=== PATIENT | female | born 1960 | race Caucasian/White ===

== ENCOUNTER 2016-11-14 20:51 | Emergency (ER) | payer BC ==
[2016-11-14] MEDS ORDERED: Aspirin 81 MG Tab.Chew PO ONE (21:10)
[2016-11-14 21:13] VITALS: BP 149/97
--- NOTE | 2016-11-14 21:22 | EDM.PDOC ---
ED HISTORY OF PRESENT ILLNESS - General Stated Complaint: NOT FEELING WELL Time Seen by Provider: 11/14/16 21:10 Source of Information: Reports: Patient History Limitations: Reports: No limitations - History of Present Illness INITIAL COMMENTS - FREE TEXT/NARRATIVE: This 56 yo female patient reports to the ED with chest pain and high blood pressure. The patient reports her symptoms started at about 1400 today as a "tightness" in the middle of her chest. The patient reports she took 1/2 of a [place] while at home and laid down, but the pain continued. The patient report after sitting at home for a while, she started to get worried about what was happening. The patient had her blood pressure taken and the pressure at home was 200/166. The patient reports she took a baby aspirin while at home, but was not sure that it got in. The patient reports she has had numerous injections in her back for pain, has a history of a gastric bypass, is a Type 2 diabetic, but no history of acid reflux or cardiac problems. The patient refused the ambulance, but came to the ED in a private vehicle (30 minute trip by car) to be seen. Symptom Onset Date: 11/14/16 Symptom Onset Time: 14:00 Timing/Duration: Reports: Improving, Intermittent Severity: moderate Location, General: Reports: chest Quality: Reports: Pressure (or tightness) Improves with: Reports: None Worsens with: Reports: Other Associated Symptoms (General): Reports: chest pain Treatments [employer]: Reports: Aspirin (possibly had 1 81 mg ASA, but may have vomited the aspirin up. ) - Related Data Allergies/ADRs: Allergies Allergy/AdvReac Type Severity Reaction Status Date / Time codeine Allergy Stomach Verified 11/14/16 21:25 Ache iodine Allergy Hives Verified 11/14/16 21:25 Home Meds: Home Meds Cyclobenzaprine HCl [Cyclobenzaprine HCl] 1 tab PO BEDTIME 10/15/14 [History] Aspirin [Adult Low Dose Aspirin EC] 1 tab PO DAILY 10/18/14 [History] Cholecalciferol (Vitamin D3) [Vitamin D3] 1 tab PO DAILY 10/18/14 [History] Multivit-Min/FA/Lycopene/Lut [Complete Multi 50+] 1 tab PO DAILY 10/18/14 [ History] Calcium Carbonate [Calcium] 500 mg PO DAILY 11/14/16 [History] Hydrocodone/Acetaminophen [Hydrocodon-Acetaminophen 5-325] 1 each PO Q4HR PRN [History] Iron Ps Cmplx/Vit B12/Fa [Poly-Iron 150 Forte] 1 tab PO BID 11/14/16 [History] Social & Family History - Tobacco Use Smoking Status *Q: Former Smoker Years of Tobacco use: 28 Month Tobacco Last Used: 2000 Second Hand Smoke Exposure: No - Alcohol Use Days Per Week of Alcohol Use: 0 - Recreational Drug Use Recreational Drug Use: No ED ROS GENERAL - Review of Systems Review Of Systems: ROS reveals no pertinent complaints other than HPI. ED EXAM, GENERAL - Physical Exam Exam: See Below Exam Limited By: No limitations General Appearance: alert, WD/WN, anxious, moderate distress, obese Eye Exam: bilateral eye: EOMI, normal inspection, PERRL Ears: normal external exam, normal canal, hearing grossly normal, normal TMs Nose: normal inspection, normal mucosa, no blood Throat/Mouth: Normal inspection, Normal lips, Normal teeth, Normal gums, Normal oropharynx, Normal voice, No airway compromise Head: atraumatic, normocephalic Neck: normal inspection, supple, non-tender, full range of motion Respiratory/Chest: no respiratory distress, lungs clear, normal breath sounds, no accessory muscle use, chest non-tender Cardiovascular: normal peripheral pulses, regular rate, rhythm, no edema, no gallop, no JVD, no murmur, no rub GI/Abdominal: normal bowel sounds, soft, non tender, no organomegaly, no distention, no abnormal bruit, no mass (Female) Exam: Deferred Rectal (Female) Exam: Deferred Back Exam: normal inspection, full range of motion, NT Extremities: normal inspection, normal range of motion, non-tender, normal capillary refill, no pedal edema Neurological: alert, oriented, CN II-XII intact, normal cognition, normal gait, normal reflexes, no motor/sensory deficits Psychiatric: normal affect, normal mood Skin Exam: Warm, Dry, Intact, Normal color, No rash Lymphatic: no adenopathy Course - Vital Signs Last Recorded V/S: Last Vital Signs Temp 36.2 C 11/14/16 21:04 Pulse 81 11/14/16 21:04 Resp 18 11/14/16 21:04 BP 149/97 H 11/14/16 21:04 Pulse Ox 97 11/14/16 21:04 - Orders/Labs/Meds Orders: Active Orders 24 hr Category Date Time Status EKG Documentation Completion [RC] URGENT Care 11/14/16 21:04 Active Chest 1V Frontal [CR] Urgent Exams 11/14/16 21:31 Ordered Labs: Laboratory Tests 11/14/16 11/14/16 Range/Units 21:16 21:16 WBC 7.6 (5.0-10.0) 10^3/uL RBC 4.48 (4.2-5.4) 10^6/uL Hgb 14.2 (12.0-16.0) g/dL Hct 42.1 (37.0-47.0) % MCV 94.0 (80-100) fL MCH 31.7 (27.0-34.0) pg MCHC 33.7 (33.0-35.0) g/dL Plt Count 232 (150-450) 10^3/uL Neut % (Auto) 78.2 H (42.2-75.2) % Lymph % (Auto) 17.0 L (20.5-50.1) % [place] % (Auto) 4.4 (2-8) % Eos % (Auto) 0.1 L (1.0-3.0) % Baso % (Auto) 0.3 (0.0-1.0) % Sodium 135 (135-145) mmol/L Potassium 3.9 (3.6-5.0) mmol/L Chloride 98 L (101-111) mmol/L Carbon Dioxide 29.0 (21.0-31.0) mmol/L Anion Gap 11.9 BUN 17 (7-18) mg/dL Creatinine 0.6 (0.6-1.3) mg/dL Est Cr Clr Drug Dosing 106.87 mL/min Estimated GFR (MDRD) > 60 BUN/Creatinine Ratio 28.33 Glucose 154 H (74-105) mg/dL Calcium 9.8 (8.4-10.2) mg/dl Total Bilirubin 0.6 (0.2-1.0) mg/dL AST 30 (10-42) IU/L ALT 28 (10-60) IU/L Alkaline Phosphatase 132 H (42-121) IU/L Troponin I < 0.02 (0.00-0.02) ng/ml Total Protein 7.9 (6.7-8.2) g/dl Albumin 4.6 (3.2-5.5) g/dl Globulin 3.3 Albumin/Globulin Ratio 1.39 Meds: Medications Discontinued Medications Generic Name Dose Route Start Last Admin Trade Name Isabel PRN Reason Stop Dose Admin Aspirin 324 mg 11/14/16 21:10 11/14/16 21:29 Aspirin PO 11/14/16 21:11 324 mg ONETIME ONE Administration Departure - Departure Time of Disposition: 21:57 Disposition: Home, Self-Care 01 Condition: fair Clinical Impression: Non-cardiac chest pain Instructions: Nonspecific Chest Pain, [id number] Forms: ED Department Discharge Care Plan Goals: The patient was advised of the examination, lab, EKG and x-ray results during the visit. The patient was given an oral dose of Aspirin (324 mg) while in the ED. The patient was encouraged to continue to monitor her symptoms. If the patient has any additional symptoms or concerns, the patient should follow-up with her primary care facility or return to the emergency department. - My Orders Last 24 Hours: My Active Orders 11/14/16 21:04 EKG Documentation Completion [RC] URGENT 11/14/16 21:31 Chest 1V Frontal [CR] Urgent - Assessment/Plan Last 24 Hours: My Active Orders 11/14/16 21:04 EKG Documentation Completion [RC] URGENT 11/14/16 21:31 Chest 1V Frontal [CR] Urgent
[2016-11-14 21:42] LABS: CHLORIDE,CL 98 mmol/L (101-111); SODIUM,NA 135 mmol/L (135-145)
--- NOTE | 2016-11-16 12:01 | EKG ---
11/14/2016 - MINNIE MITTAL I reviewed the EKG and agree with the machine's reading. [facility] /[id number]
== END 2016-11-14 22:12 | disposition home or self-care (01) ==
LOC: DL.ED 20:51
DX: R07.89 Other chest pain (principal); Z79.82 Long term (current) use of aspirin; Z79.899 Other long term (current) drug therapy; Z88.5 Allergy status to narcotic agent; Z87.891 Personal history of nicotine dependence
CPT/HCPCS: 36415; 71010; 80053; 84484; 85025; 93005; 99285; A9270

== ENCOUNTER → 2019-02-02 | Outpatient (CLI) | payer BC ==
[2019-02-02 14:13] LABS: ANION GAP 13.2; CHLORIDE,CL 104 mmol/L (101-111); SODIUM,NA 141 mmol/L (135-145)
== END ==
LOC: DL.CLIN 10:30
PROVIDERS: ATTEND Nurse Practitioner
DX: E11.9 Type 2 diabetes mellitus without complications (principal); R53.83 Other fatigue; Z98.84 Bariatric surgery status
CPT/HCPCS: 80053; 80061; 82043; 82570; 82607; 82728; 82746; 83036; 83540; 83550; 83735; 84443; 85025

== ENCOUNTER 2019-03-26 06:00 | Day surgery (SDC) | payer BC ==
[2019-03-26] MEDS ORDERED: fentaNYL 100 MCG/2 ML SDV IV ONE ×4 (06:01→07:05)
[2019-03-26] MEDS ORDERED: Midazolam 1 MG/ML 2 ML SDV IV ONE ×6 (06:01→07:04)
[2019-03-26] MEDS ORDERED: fentaNYL 100 MCG/2 ML SDV ONE (06:30)
[2019-03-26] MEDS ORDERED: Dextrose 5%-0.45% NaCl 1,000 ML IV SCH (06:30)
[2019-03-26] MEDS ORDERED: Midazolam 1 MG/ML 2 ML SDV ONE (06:30)
[2019-03-26 09:09] VITALS: BP 129/75
--- NOTE | 2019-03-26 09:53 | OR ---
DATE: 03/26/2019 PREOPERATIVE DIAGNOSIS: Family history of colon cancer. POSTOPERATIVE DIAGNOSIS: Family history of colon cancer. PROCEDURE: Total colonoscopy. ANESTHESIA: Conscious sedation with IV Versed and fentanyl. SPECIMEN: None. OPERATIVE FINDINGS: Normal colonoscopy. INDICATION FOR PROCEDURE: This 58-year-old female has a first-degree relative primary colon cancer history. RECOMMENDATIONS: This patient has had several normal colonoscopies. At 58, might consider some genetic testing to see if she really is at risk for cancer. Otherwise, I think her colonoscopy followups could be at least 5 years out or sooner if her genetic testing is positive. PROCEDURE IN DETAIL: After adequate preparation, a colonoscope was inserted into the rectum. This was easily passed all the way to the cecum. Confirmation of the cecum was made by visualization of the ileocecal valve and palpation in the right lower quadrant. The bowel prep was excellent. On withdrawal of the scope, a good examination of the colon was accomplished. The patient has no masses, polyps, bleeding sites, colitis, or diverticula. Anal and rectal examinations were also normal. Air was suctioned from the colon and the scope removed. [facility] /[id number]
== END 2019-03-26 09:10 | disposition home or self-care (01) ==
LOC: DL.ENDO 06:00
PROVIDERS: ATTEND Surgery
DX: Z12.11 Encounter for screening for malignant neoplasm of colon (principal); Z80.0 Family history of malignant neoplasm of digestive organs
CPT/HCPCS: 45378; J2250; J3010; J7042; G0121